=== PATIENT | male | born 1965 | race Caucasian/White ===

== ENCOUNTER 2017-01-20 16:27 | Emergency (ER) | payer OTHER ==
[~2017-01-20] VITALS: Ht 175.3 cm; Wt 106.0 kg
[2017-01-20 16:47] VITALS: BP 125/97; PULSE 89; RESP 17; TEMP 97.8; O2SAT 98
[2017-01-20] MEDS ORDERED: LISI-515 PO (16:49)
[2017-01-20 17:00] VITALS: RESP 17; O2SAT 98
[2017-01-20] MEDS ORDERED: PRAV10TA PO (17:00)
[2017-01-20] MEDS ORDERED: SODIUM CHLORIDE 0.9% FLUSH 5 ML FLUSH IVF PRN (17:00)
[2017-01-20 17:20] LABS: AUTOMATED NEUTROPHIL # 7.5 TH/MM3 (1.8-7.7); BASOPHIL # 0.1 TH/MM3 (0-0.2); BASOPHIL % 0.9 % (0.0-2.0); EOSINOPHIL # 0.2 TH/MM3 (0-0.4); EOSINOPHIL % 1.8 % (0.0-4.0); HEMATOCRIT 46.1 % (39.0-51.0); HEMO FLAGS DIFF FINAL; LYMPH % 12.5 % (9.0-44.0); LYMPHOCYTE # 1.2 TH/MM3 (1.0-4.8); MEAN CELL VOLUME 85.7 FL (80.0-100.0); MEAN CORPUSCULAR HEMOGLOBIN 28.8 PG (27.0-34.0); MEAN CORPUSCULAR HGB CONC 33.6 % (32.0-36.0); MONO % 5.7 % (0.0-8.0); NEUT % 79.1 % (16.0-70.0); PLATELET COUNT 294 TH/MM3 (150-450); RED BLOOD COUNT 5.38 MIL/MM3 (4.50-5.90); RED CELL DISTRIBUTION WIDTH 12.9 % (11.6-17.2); WHITE BLOOD COUNT 9.4 TH/MM3 (4.0-11.0)
[2017-01-20 17:35] LABS: ANION GAP 7 MEQ/L (5-15); BICARBONATE 31.3 MEQ/L (21.0-32.0); BLOOD UREA NITROGEN 17 MG/DL (7-18); CHLORIDE 101 MEQ/L (98-107); GLOMERULAR FILTRATION RATE 52 ML/MIN (>89); POTASSIUM 3.6 MEQ/L (3.5-5.1); SODIUM (NA) 139 MEQ/L (136-145)
[2017-01-20 17:39] LABS: CREATINE KINASE 281 U/L (39-308)
--- NOTE | 2017-01-20 17:47 | PD ---
HPI . Syncope Chief Complaint: Syncope/Near-Syncope Time Seen by Provider: 16:58 Travel History International Travel<30 days: No Contact w/Intl Traveler<30days: No Traveled to known affect area: No History of Present Illness HPI Patient presents to us by EVAC following a syncopal episode at a doctor's office. He was receiving a cortisone injection in his right shoulder when he very dizzy and sweaty. He denies any injury associated with the episode. States he feels fine now. He denies any headache, blurred vision, chest pain, shortness of breath, vomiting, blood loss. PFSH Past Medical History Cardiovascular Problems: Yes (HBP) High Cholesterol: Yes Diminished Hearing: No Hypertension: Yes Medical other: Yes Tetanus Vaccination: < 5 Years Influenza Vaccination: No Social History Alcohol Use: Yes (OCASSIONALLY) Tobacco Use: No Substance Use: No Allergies-Medications (Allergen,Severity, Reaction): Coded Allergies: Sulfa (Verified Allergy, Severe, RASH, 01/20/17) Reported Meds & Prescriptions Reported Meds & Active Scripts Active Reported Pravastatin 10 Mg Tab 10 Mg PO DAILY Lisinopril 20 Mg Tab 20 Mg PO DAILY Review of Systems Except as stated in HPI: all other systems reviewed are Neg General / Constitutional: Positive: Other (diaphoresis prior to the event), No : Fever, Chills Eyes: No: Blurred Vision HENT: Positive: Lightheadedness Cardiovascular: No: Chest Pain or Discomfort Respiratory: No: Shortness of Breath Gastrointestinal: No: Nausea, Vomiting, Diarrhea, Abdominal Pain, Hematemesis, Hematochezia Genitourinary: No: Urgency, Frequency, Dysuria Musculoskeletal: Positive: Arthralgias (right shoulder) Neurologic: Positive: Syncope Physical Exam Narrative GENERAL: This is a healthy-appearing man who is currently in no distress. SKIN: Warm and dry. HEAD: Atraumatic. Normocephalic. EYES: Pupils equal and round. Extraocular movements are intact. ENT: No nasal bleeding or discharge. Mucous membranes pink and moist. NECK: Trachea midline. Neck is supple. CARDIOVASCULAR: Regular rate and rhythm. Heart sounds are normal. RESPIRATORY: No accessory muscle use. Lungs are clear with full air movement throughout. GASTROINTESTINAL: Abdomen soft, non-tender, nondistended. MUSCULOSKELETAL: No obvious deformities. No edema. NEUROLOGICAL: Awake and alert. No obvious cranial nerve deficits. Motor grossly within normal limits. Normal speech. PSYCHIATRIC: Appropriate mood and affect; insight and judgment normal. Data Data Last Documented VS Vital Signs Date Time Temp Pulse Resp B/P Pulse Ox O2 Delivery O2 Flow Rate FiO2 01/20/17 17:00 17 98 Room Air 01/20/17 16:53 89 01/20/17 16:47 97.8 125/97 Orders Electrocardiogram (01/20/17 ) Basic Metabolic Panel (Bmp) (01/20/17 16:58) Complete Blood Count With Diff (01/20/17 16:58) Ckmb (Isoenzyme) Profile (01/20/17 16:58) Troponin I (01/20/17 16:58) Ecg Monitoring (01/20/17 16:58) Iv Access Insert/Monitor (01/20/17 16:58) Oximetry (01/20/17 16:58) Sodium Chloride 0.9% Flush (Ns Flush) (01/20/17 17:00) CKMB (01/20/17 17:00) CKMB% (01/20/17 17:00) Labs Laboratory Tests Test 01/20/17 17:00 White Blood Count 9.4 TH/MM3 Red Blood Count 5.38 MIL/MM3 Hemoglobin 15.5 GM/DL Hematocrit 46.1 % Mean Corpuscular Volume 85.7 FL Mean Corpuscular Hemoglobin 28.8 PG Mean Corpuscular Hemoglobin 33.6 % Concent Red Cell Distribution Width 12.9 % Platelet Count 294 TH/MM3 Mean Platelet Volume 7.8 FL Neutrophils (%) (Auto) 79.1 % Lymphocytes (%) (Auto) 12.5 % Monocytes (%) (Auto) 5.7 % Eosinophils (%) (Auto) 1.8 % Basophils (%) (Auto) 0.9 % Neutrophils # (Auto) 7.5 TH/MM3 Lymphocytes # (Auto) 1.2 TH/MM3 Monocytes # (Auto) 0.5 TH/MM3 Eosinophils # (Auto) 0.2 TH/MM3 Basophils # (Auto) 0.1 TH/MM3 CBC Comment DIFF FINAL Differential Comment Sodium Level 139 MEQ/L Potassium Level 3.6 MEQ/L Chloride Level 101 MEQ/L Carbon Dioxide Level 31.3 MEQ/L Anion Gap 7 MEQ/L Blood Urea Nitrogen 17 MG/DL Creatinine 1.44 MG/DL Estimat Glomerular Filtration 52 ML/MIN Rate Random Glucose 103 MG/DL Calcium Level 9.1 MG/DL Total Creatine Kinase 281 U/L Troponin I LESS THAN 0.02 NG/ML MDM Medical Decision Making Medical Screen Exam Complete: Yes Emergency Medical Condition: Yes Interpretation(s) His EKG shows a sinus rhythm with no ST segment elevation or depression. He does have LVH. Differential Diagnosis My differential diagnosis of syncope includes but is not limited to cardiac arrhythmia, hypovolemia, anemia, neurological catastrophe, vasovagal response Narrative Course Patient presented to us from an outside doctor's office suffering a syncopal event while receiving a cortisone injection. He had the prodrome of dizziness and diaphoresis prior to the event. He is now asymptomatic. CBC & BMP Diagram 01/20/17 17:00 His cardiac enzymes are negative. Diagnosis Primary Impression: Syncope, vasovagal Patient Instructions: General Instructions, Syncope (DC) Disposition: 01 DISCHARGE HOME Condition: Stable Lenora Nelson MD Jan 20, 2017 17:47
[2017-01-20 17:51] LABS: CKMB 1.5 NG/ML (0.5-3.6)
[2017-01-20 18:10] VITALS: BP 120/81; TEMP 97.8
--- NOTE | 2017-01-21 23:56 | EKG ---
Date Performed: 01/20/2017 Time Performed: 16:51:10 PTAGE: 52 years EKG: Sinus rhythm VOLTAGE CRITERIA FOR LVH ABNORMAL ECG NO PREVIOUS TRACING DOCTOR: Hunter Zarco Interpretating Date/Time 01/21/2017 23:55:26
== END 2017-01-20 18:10 | disposition home or self-care (01) ==
LOC: NEDAMB 16:27 → NEPA 18:10
DX: R55 Syncope and collapse (principal); R94.31 Abnormal electrocardiogram [ECG] [EKG]; I10 Essential (primary) hypertension; E78.00 Pure hypercholesterolemia, unspecified; Z86.79 Personal history of other diseases of the circulatory system
CPT/HCPCS: 80048; 82550; 82552; 84484; 85025; 93005